=== PATIENT | female | born 1930 | race African-American/Black ===

== ENCOUNTER 2021-12-23 08:26 | Emergency (ER) | payer MEDICARE, BC ==
[~2021-12-23] VITALS: Ht 165.1 cm; Wt 66.0 kg
[~2021-12-23 08:26] MED LIST: ALBUTEROL INH; ASPI-1073 PO; AZOPT OP; BRIM.2 BOTHEYE; FLUT1DIS3 IH; FLUTICASONE NS; GLUCOPHAGE PO; HYDR-1348 PO; HYDR12.529 PO; METFORMIN PO; NIFE10CA PO; SIMV-43 PO; ZAFI20TA12 PO
[2021-12-23 08:28] VITALS: BP 146/86
[2021-12-23] MEDS ORDERED: NITROGLYCERIN OINT 1GM/INCH UDPKT TD ONE (08:45)
[2021-12-23] MEDS ORDERED: ASPIRIN 81MG TABLET PO ONE (08:45)
[2021-12-23 10:06] LABS: BASOPHILS % 0.4 % (0.0-2.0); HEMATOCRIT. 33.8 % (36.0-48.0); HEMOGLOBIN. 11.8 g/dL (12.0-16.0); LYMPHOCYTES % 17.6 % (20.0-50.0); MEAN CORPUSCULAR HEMOGLOBIN 34.4 pg (28.0-32.0); MEAN CORPUSCULAR VOLUME 98.5 fL (81.0-99.0); MEAN PLATELET VOLUME 7.8 fl (7.4-10.4); MONOCYTES % 5.8 % (2.0-8.0); NEUTROPHILS % 73.2 % (40.0-76.0); PLATELET 240 x1000/uL (130-400); RED BLOOD CELL COUNT 3.43 mill/uL (4.2-5.4); RED CELL DISTRIBUTION WIDTH 13.9 % (11.6-14.6)
[2021-12-23 10:10] LABS: CHLORIDE 104 mEq/L (98-107)
== END 2021-12-23 14:46 | disposition left against medical advice (07) ==
LOC: ER 08:26 → CANBEDREQ 16:24
DX: I11.0 Hypertensive heart disease with heart failure (principal); I50.21 Acute systolic (congestive) heart failure; R07.89 Other chest pain; D64.9 Anemia, unspecified; E11.9 Type 2 diabetes mellitus without complications; I48.91 Unspecified atrial fibrillation; I25.2 Old myocardial infarction; Z95.0 Presence of cardiac pacemaker; Z79.01 Long term (current) use of anticoagulants; Z79.82 Long term (current) use of aspirin
CPT/HCPCS: 36415; 71045; 80053; 83880; 84484; 85025; 93005; 99285